=== PATIENT | female | born 1970 | race Asian ===

== ENCOUNTER 2017-03-01 17:33 | Emergency (ER) | payer SELFPAY ==
[~2017-03-01] VITALS: Ht 162.6 cm; Wt 57.0 kg
[2017-03-01 17:35] VITALS: BP 130/86
[2017-03-01] MEDS ORDERED: CLON1TAB PO (17:39)
[2017-03-01 19:54] LABS: HEMATOCRIT. 34.8 % (36.0-48.0); HEMOGLOBIN. 11.7 g/dL (12.0-16.0); MEAN CORPUSCULAR HEMOGLOBIN 29.5 pg (28.0-32.0); MEAN CORPUSCULAR VOLUME 87.6 fL (81.0-99.0); MEAN PLATELET VOLUME 7.4 fl (7.4-10.4); PLATELET 278 x1000/uL (130-400); RED BLOOD CELL COUNT 3.97 mill/uL (4.2-5.4); RED CELL DISTRIBUTION WIDTH 13.1 % (11.6-14.6)
[2017-03-01 20:09] LABS: CARBON DIOXIDE 26 mEq/L (21-32); CHLORIDE 104 mEq/L (98-107); ETHANOL BLOOD < 10 mg/dL
[2017-03-01 20:47] LABS: PLATELET ESTIMATE NORMAL
== END 2017-03-01 19:38 | disposition left against medical advice (07) ==
LOC: ER 18:04
DX: R41.82 Altered mental status, unspecified (principal); F41.0 Panic disorder [episodic paroxysmal anxiety]
CPT/HCPCS: 36415; 80053; 85025; 99284; G0482